=== PATIENT | male | born 1990 | race Caucasian/White ===

== ENCOUNTER 2025-06-16 22:05 | Emergency (ER) | payer OTHER ==
[~2025-06-16] VITALS: Ht 180.3 cm; Wt 109.0 kg
[2025-06-16] MEDS: DEXAMETHASONE 10 MG/ML VIAL IM ONE (22:59)
[2025-06-16] MEDS: ALBUTEROL (0.083%) 2.5MG/3ML NEB HHN ONE (23:09)
[2025-06-16 23:10] VITALS: PULSE 80; RESP 16; O2SAT 98
[2025-06-16] MEDS: IPRATROPIUM BROMIDE (0.02%) 0.5MG/2.5ML NEB HHN ONE (23:10)
[2025-06-16 23:15] LABS: HEMATOCRIT. 43.6 % (42.0-52.0); HEMOGLOBIN. 14.7 g/dL (14.0-18.0); MEAN PLATELET VOLUME 8.5 fl (7.4-10.4); PLATELET 257 x1000/uL (130-400); RED BLOOD CELL COUNT 5.38 mill/uL (4.7-6.1); RED CELL DISTRIBUTION WIDTH 13.5 % (11.6-14.6)
[2025-06-16 23:29] LABS: CREATININE 0.9 mg/dL (0.6-1.3)
[2025-06-16 23:30] LABS: TROPONIN I HIGH SENSITIVITY 5 ng/L (3.0-53); UREA NITROGEN BLOOD 15 mg/dL (9-23)
[2025-06-17] MEDS ORDERED: ALBU90AE INH (00:12)
[2025-06-17] MEDS ORDERED: METH4TAB95 MT (00:12)
[2025-06-17 00:32] VITALS: BP 137/77; PULSE 96; RESP 17; TEMP 36.6; O2SAT 95
[2025-06-17 03:21] LABS: EOSINOPHILS % MANUAL 16.0 % (0.0-5.0); LYMPHOCYTES % MANUAL 25.0 % (20.0-50.0); MONOCYTES % MANUAL 4.0 % (2.0-8.0); NEUTROPHILS % MANUAL 55.0 % (45.0-75.0)
[2025-06-17 03:23] LABS: PLATELET ESTIMATE NORMAL
== END 2025-06-17 00:36 | disposition home or self-care (01) ==
LOC: ER 22:05
DX: J20.9 Acute bronchitis, unspecified (principal)
CPT/HCPCS: 80048; 85025; 84484; 36415; 71045; 94640; 94760; 93005; 96372; 99285; J1100; Z7610 ×3; 94070